=== PATIENT | female | born 1990 | race Asian ===

== ENCOUNTER 2019-05-08 14:03 | Emergency (ER) | payer OTHER ==
[~2019-05-08] VITALS: Ht 149.9 cm; Wt 74.8 kg
[2019-05-08 14:08] VITALS: TEMP 97.8
[2019-05-08 14:54] LABS: PLATELET COUNT 245 K/uL (152-353)
[2019-05-08 15:15] LABS: POTASSIUM 3.7 mmol/L (3.6-5.2); SODIUM 140 mmol/L (136-145)
[2019-05-08 16:45] VITALS: BP 143/90
== END 2019-05-08 16:45 | disposition home or self-care (01) ==
LOC: ED 14:03
PROVIDERS: Family Medicine
DX: R07.89 Other chest pain (principal); M94.0 Chondrocostal junction syndrome [Tietze]
CPT/HCPCS: 36415; 80053; 81000; 82550; 84484; 85027; 93005; 99284